=== PATIENT | female | born 1965 | race Caucasian/White ===

== ENCOUNTER 2016-06-21 14:45 | Emergency (ER) | payer MEDICAID ==
[2016-06-21] MEDS ORDERED: guaiFENesin/CODEINE 5 ML UDC PO STA (16:04)
[2016-06-21] MEDS ORDERED: ACETAMINOPHEN 325 MG TABLET PO STA (16:04)
[2016-06-21] MEDS ORDERED: IBUPROFEN 400 MG TABLET PO STA (16:04)
[2016-06-21] MEDS ORDERED: guaiFENesin/CODEINE 5 ML UDC ONE (16:15)
[2016-06-21] MEDS ORDERED: ACETAMINOPHEN 325 MG TABLET PO ONE (16:16)
[2016-06-21] MEDS ORDERED: IBUPROFEN 400 MG TABLET PO ONE (16:16)
== END 2016-06-21 17:26 | disposition home or self-care (01) ==
DX: J18.9 Pneumonia, unspecified organism (principal); N30.00 Acute cystitis without hematuria; F17.200 Nicotine dependence, unspecified, uncomplicated
CPT/HCPCS: 71020; 81001; 81025; 87275; 87276; 99283; 99284; A9270

== ENCOUNTER 2016-07-14 02:32 | Emergency (ER) | payer MEDICAID ==
[2016-07-14] MEDS ORDERED: cefTRIAXone 1 GM VIAL IM STA (03:01)
[2016-07-14] MEDS ORDERED: DEXAMETHASONE 10 MG/ML VIAL PO STA (03:01)
[2016-07-14] MEDS ORDERED: LIDOCAINE-MPF 1% 5 ML VIAL ONE (03:05)
[2016-07-14] MEDS ORDERED: DEXAMETHASONE 10 MG/ML VIAL ONE (03:06)
[2016-07-14] MEDS ORDERED: cefTRIAXone 1 GM VIAL ONE (03:06)
[2016-07-14] MEDS ORDERED: CHERRY SYRUP 10 ML UDC PO ONE (03:06)
== END 2016-07-14 03:52 | disposition home or self-care (01) ==
DX: H66.003 Acute suppurative otitis media without spontaneous rupture of ear drum, bilateral (principal); R05 Cough; F17.200 Nicotine dependence, unspecified, uncomplicated; I10 Essential (primary) hypertension
CPT/HCPCS: 71020; 96372; 99283; A9270

== ENCOUNTER 2017-12-11 11:34 | Emergency (ER) | payer MEDICAID ==
[2017-12-11 11:46] VITALS: BP 178/109
[2017-12-11] MEDS ORDERED: DEXAMETHASONE 10 MG/ML VIAL PO STA (13:41)
--- NOTE | 2017-12-11 13:44 | ED Physician Documentation ---
PD HPI URI - Stated complaint Stated Complaint: THROAT SWELLING,PX - Chief complaint Chief Complaint: Heent - History obtained from History obtained from: Patient - History of Present Illness Timing - onset: How many weeks ago (1) Timing duration: Days (5) Timing details: Gradual onset, Still present Associated symptoms: Fever, Chills, Ear pain, Nasal congestion, Rhinorrhea, Sore throat, Dry cough Contributing factors: Sick contact Improves by: Rest, Medication Worsened by: Activity Similar symptoms before: Diagnosis (pneumonia OM) Recently seen: Not recently seen - Additional information Additional information: 52-year-old female with prior history of pneumonia has developed a cough and congestion and sore throat. Over the last 2 days she has developed a lot of pain in the left side of her throat and is having some difficulty swallowing. 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 - Present Medications Home Medications: Ambulatory Orders Medication Instructions Recorded Confirmed Azithromycin [Zithromax] 250 mg PO DAILY #6 tablet 12/11/17 - Allergies Allergies/Adverse Reactions: Allergies Allergy/AdvReac Type Severity Reaction Status Date / Time Latex, Natural Rubber Allergy Mild Rash Verified 07/14/16 02:38 - Social History Does the pt smoke?: Yes Smoking Status: Current every day smoker Does the pt drink ETOH?: Yes Does the pt have substance abuse?: No - Immunizations Immunizations are current?: Yes - POLST Patient has POLST: No PD ED PE NORMAL - Vitals Vital signs reviewed: Yes (hypertensive ) - General General: Alert and oriented X 3, No acute distress, Well developed/nourished - HEENT HEENT: Atraumatic, PERRL, EOMI, Other (There is marked inflamation in the left TM with distortion of the landmarks. There is minimal inflamation on the right TM. ) - Neck Neck: Supple, no meningeal sign, No bony TTP - Cardiac Cardiac: RRR, No murmur - Respiratory Respiratory: No respiratory distress, Other (diminished breath sounds ) - Abdomen Abdomen: Soft, Non tender - Back Back: No CVA TTP, No spinal TTP - Derm Derm: Normal color, Warm and dry, No rash - Extremities Extremities: No deformity, No edema - Neuro Neuro: Alert and oriented X 3, No motor deficit, No sensory deficit, Normal speech Eye Opening: Spontaneous Motor: Obeys Commands Verbal: Oriented GCS Score: 15 - Psych Psych: Normal mood, Normal affect Results - Vitals Vitals: Vital Signs - 24 hr 12/11/17 11:41 Temperature 36 C L Heart Rate 74 Respiratory 20 Rate Blood Pressure 178/109 H O2 Saturation 100 Oxygen O2 Source Non-rebreather mask - Labs Labs: Laboratory Tests 12/11/17 12:06 Group A Strep Rapid Negative PD MEDICAL DECISION MAKING - ED course Complexity details: reviewed results, re-evaluated patient, considered differential, d/w patient ED course: 52-year-old female with a sore throat cough congestion has otitis on examination and her rapid strep is negative. She is given dexamethasone 10 mg orally here and we will place her on some azithromycin. - Sepsis Event Vital Signs: Vital Signs - 24 hr 12/11/17 11:41 Temperature 36 C L Heart Rate 74 Respiratory 20 Rate Blood Pressure 178/109 H O2 Saturation 100 Oxygen O2 Source Non-rebreather mask Departure - Departure Disposition: 01 Home, Self Care Clinical Impression: Otitis media Qualifiers: Otitis media type: suppurative Chronicity: acute Laterality: left Recurrence: not specified as recurrent Spontaneous tympanic membrane rupture: without spontaneous rupture Qualified Code(s): H66.002 - Acute suppurative otitis media without spontaneous rupture of ear drum, left ear Condition: Stable Instructions: ED Otitis Media Acute Adult Follow-Up: [facility] [Provider Group] Prescriptions: Azithromycin [Zithromax] 250 mg PO DAILY #6 tablet Comments: Today in the Emergency Department your blood pressure was elevated. This can happen from the stress of the visit itself, from a current illness or circumstance or from uncontrolled hypertension. If you take blood pressure medications take your usual mediations, have your blood pressure re-checked in an appropriate setting and follow up any elevation with your primary care doctor.
== END 2017-12-11 13:52 | disposition home or self-care (01) ==
LOC: ED 11:34
DX: H66.002 Acute suppurative otitis media without spontaneous rupture of ear drum, left ear (principal); R03.0 Elevated blood-pressure reading, without diagnosis of hypertension
CPT/HCPCS: 87070; 87430; 99283

== ENCOUNTER 2022-10-19 22:00 | Outpatient (CLI) | payer MEDICAID | END 2022-10-19 22:01 | disposition critical access hospital (66) | LOC: EMS 22:00 | DX: R53.1 Weakness (principal); R11.0 Nausea; T40.711A Poisoning by cannabis, accidental (unintentional), initial encounter | CPT/HCPCS: A0425; A0429; A0999 ==

== ENCOUNTER 2022-10-19 23:31 | Emergency (ER) | payer MEDICAID, MEDICARE ==
[2022-10-19 23:45] VITALS: BP 135/88
--- NOTE | 2022-10-19 23:51 | ED Physician Documentation ---
History of Present Illness - Stated complaint Stated Complaint: GEN WEAKNESS - History obtained from History obtained from: Patient - Additonal information Additional information: 57yF, previously healthy p/w acute episode of SOA per friends prompting them to call EMS tonight. patient reported to ems that she had imbibed 1 bottle of mikes hard lemonade then smoked a "dab" of high potency marijuana. She became dizzy, disoriented, nauseous, and had one episode of nbnb n/v on scene. ems offered zofran and she declined. Patient reports she has had MJ before but not this strong. denies cp, soa, abd pain. does state she feels "fuzzy". AOX3. fingerstick on scene 120. vital signs WNL on scene. Review of Systems Constitutional: denies: Fever Cardiac: denies: Chest pain / pressure Respiratory: denies: Dyspnea, Cough GI: reports: Nausea, Vomiting. denies: Abdominal Pain, Diarrhea Neurologic: reports: Generalized weakness, Other ("fuzzy"). 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: Other - Present Medications Home Medications: Ambulatory Orders Medication Instructions Recorded Confirmed Azithromycin [Zithromax] 250 mg PO DAILY #6 tablet 12/11/17 - Allergies Allergies/Adverse Reactions: Allergies Allergy/AdvReac Type Severity Reaction Status Date / Time Latex, Natural Rubber Allergy Mild Rash Verified 07/14/16 02:38 - Social History Does the pt smoke?: Yes Smoking Status: Current every day smoker Does the pt drink ETOH?: Yes Does the pt have substance abuse?: No - Immunizations Immunizations are current?: Yes - POLST Patient has POLST: No PD ED PE NORMAL - Vitals Vital signs reviewed: Yes - General General: Alert and oriented X 3, No acute distress, Well developed/nourished - HEENT HEENT: Atraumatic, PERRL, EOMI - Neck Neck: Supple, no meningeal sign - Cardiac Cardiac: RRR - Respiratory Respiratory: No respiratory distress, Clear bilaterally - Abdomen Abdomen: Non tender, Non distended - Derm Derm: Normal color, Warm and dry - Extremities Extremities: No edema - Psych Psych: Normal mood, Normal affect Results - Vitals Vitals: Oxygen O2 Source Non-rebreather mask PD Medical Decision Making - ED course ED course: 57yF presents with acute marijuana intoxication in setting of alcohol use. Patient is well appearing here, tolerating po, with normal vital signs and physical exam. Patient's friends Chio and Gopal are at bedside, able to take her home. Counseled on need for oral hydration in morning. Patient states she is embarrassed and states "never again" in regards to high potency marijuana. Plan to follow up routinely with pcp. Departure - Departure Disposition: 01 Home, Self Care Clinical Impression: Marijuana use, Alcohol use Condition: Stable Instructions: ED Screening Exam Medical Nonurgent Comments: You were seen in the emergency department for marijuana intoxication in the setting of alcohol use. Please follow-up routinely with your primary care provider.You seem to have a sensitivity to this variety of marijuana and I would recommend that you not use it again and consider avoiding marijuana use entirely. Return to the ED if you develop any new symptoms or for other concerns.
== END 2022-10-20 00:13 | disposition home or self-care (01) ==
LOC: EDUNIT# → ED 23:31
DX: F12.90 Cannabis use, unspecified, uncomplicated (principal); F10.90 Alcohol use, unspecified, uncomplicated; F17.200 Nicotine dependence, unspecified, uncomplicated
CPT/HCPCS: 99282; 99283

== ENCOUNTER 2022-11-11 14:44 | Emergency (ER) | payer MEDICAID ==
[2022-11-11 14:56] VITALS: BP 171/95
== END 2022-11-11 16:01 | disposition left against medical advice (07) ==
LOC: ED 14:44
DX: Z53.21 Procedure and treatment not carried out due to patient leaving prior to being seen by health care provider (principal)